=== PATIENT | female | born 1970 | race Caucasian/White ===

== ENCOUNTER 2018-11-19 06:35 | Outpatient (CLI) | payer BC ==
[2018-11-19 13:19] LABS: Hemoglobin 13.5 g/dL (12.0-16.0); Mean Corpuscular HGB CONC 33.2 g/dL (32.0-36.0); Mean Corpuscular Hemoglobin 30.2 pg (27.0-31.0); Mean Platelet Volume 7.9 fL (7.4-10.4); Platelet Count 282 thou/uL (130-400); Red Blood Cell (RBC) Count 4.46 mill/uL (4.20-5.40); White Blood Cell (WBC) Count 7.8 thou/uL (4.8-10.8)
[2018-11-19 13:40] LABS: Anion Gap 12 mmol/L (10-20); BUN (Urea Nitrogen) 15 mg/dL (7.0-18.7); Calc. Creatinine Clearance 0 mL/min (70-130); Calcium 9.7 mg/dL (7.8-10.44); Carbon Dioxide 25 mmol/L (22-29); Chloride 108 mmol/L (98-107); Estimated GFR-MDRD 70; Glucose 88 mg/dL (70-105); Potassium 3.8 mmol/L (3.5-5.1); Sodium 141 mmol/L (136-145)
[2018-11-19 14:22] LABS: PTT 27.7 SEC (22.9-36.1); Prothrombin Time 12.8 SEC (12.0-14.7)
--- NOTE | 2018-11-20 21:04 | EKG ---
Test Reason : Blood Pressure : / mmHG Vent. Rate : 072 BPM Atrial Rate : 072 BPM P-R Int : 150 ms QRS Dur : 066 ms QT Int : 392 ms P-R-T Axes : 081 086 081 degrees QTc Int : 429 ms Normal sinus rhythm Normal ECG No previous ECGs available Confirmed by Johanna TAFOYA ([id number]) on 11/20/2018 9:04:35 PM Referred By: SOLOMON Confirmed By:Johanna TAFOYA
== END 2018-11-19 06:36 | disposition home or self-care (01) ==
LOC: LABBT 06:35
PROVIDERS: ATTEND Surgery
DX: Z01.818 Encounter for other preprocedural examination (principal); M54.12 Radiculopathy, cervical region; M48.02 Spinal stenosis, cervical region
CPT/HCPCS: 80048; 85027; 85610; 85730; 93005; 93010

== ENCOUNTER 2018-11-26 06:02 | Day surgery (SDC) | payer BC ==
[2018-11-19 11:56] VITALS: BMI 23.6
[2018-11-26] MEDS ORDERED: Thrombin 5000 UNITS/5 ML VIAL ONE (06:33)
[2018-11-26] MEDS ORDERED: Sodium Chloride 0.9% 10 ML ONE (06:33)
[2018-11-26] MEDS ORDERED: Scopolamine 1.5 mg/72 hour Patch ONE (07:03)
[2018-11-26] MEDS ORDERED: Promethazine HCl 25 MG/ML VIAL ONE (07:03)
[2018-11-26] MEDS ORDERED: Famotidine/PF 20 mg/2ml Vial ONE (07:03)
[2018-11-26] MEDS ORDERED: CEFAZOLIN 2 GM/50 ML BAG ONE ×2 (07:10)
[2018-11-26] MEDS ORDERED: Fentanyl 100 MCG/2 ML VIAL ONE (07:25)
[2018-11-26] MEDS ORDERED: HYDROmorphone 2 MG/ML VIAL SLOW IVP PRN (09:37)
[2018-11-26] MEDS ORDERED: Ondansetron HCl/PF 4 MG/2 ML Vial IVP PRN (09:37)
[2018-11-26] MEDS ORDERED: Promethazine HCl 25 MG/ML VIAL SLOW IVP PRN (09:37)
[2018-11-26] MEDS ORDERED: Morphine Sulfate 2 MG/ML SYRINGE SLOW IVP PRN (09:37)
[2018-11-26] MEDS ORDERED: Promethazine HCl 25 MG/ML VIAL IM PRN ×2 (09:37→10:03)
[2018-11-26] MEDS ORDERED: PACU-Morphine 4MG/ML VIAL SLOW IVP PRN (09:37)
[2018-11-26] MEDS ORDERED: Acetaminophen 325 MG TAB PO PRN (10:03)
[2018-11-26] MEDS ORDERED: traMADol HCl 50 MG TAB PO PRN (10:03)
[2018-11-26] MEDS ORDERED: Fleet Enema 133 ML BOT PR PRN (10:03)
[2018-11-26] MEDS ORDERED: Mag-Al 1200 mg/1200 mg/30 ML UDCUP PO PRN (10:03)
[2018-11-26] MEDS ORDERED: Acetaminophen/Codeine 30-300mg Tablet PO PRN (10:03)
[2018-11-26] MEDS ORDERED: Bisacodyl 10 MG SUPP PR PRN (10:03)
[2018-11-26] MEDS ORDERED: Milk Of Magnesia 30 ML UDCUP PO PRN (10:03)
[2018-11-26] MEDS ORDERED: Gabapentin 300 MG CAP PO PRN (10:04)
[2018-11-26] MEDS ORDERED: CEFAZOLIN/Water 2 GM/20 ML SYRINGE SLOW IVP SCH (10:15)
[2018-11-26] MEDS ORDERED: HYDROmorphone 2 MG/ML VIAL ONE (11:20)
--- NOTE | 2018-11-26 13:42 | OP ---
DATE OF PROCEDURE: 11/26/2018 OPERATING ROOM: OR 11. WOUND CLASSIFICATION: Type 1 wound. OLIVING MACHINE OPERATOR: Timmy Paz PA-C. PREPROCEDURE DIAGNOSES: Cervical stenosis with neck and arm pain and cervical radiculopathy. POSTPROCEDURE DIAGNOSES: Cervical stenosis with neck and arm pain and cervical radiculopathy. PROCEDURES PERFORMED: 1. C5-C6 and C6-C7 diskectomies anteriorly for decompression of spinal cord and nerve roots. 2. Placement of interbody spacers, packed with graft, C5-C6 and C6-C7 for arthrodesis. 3. Anterior cervical plate and screw fixation C5, C6, and C7. 4. Use of operative microscope for microdissection. DESCRIPTION OF PROCEDURE: After informed consent was obtained from patient, the patient was brought to the OR. Proper patient pause and identification were carried out. Right anterior oblique wound was drawn out on the patient's anterior neck and this region was sterilely cleansed, prepared, and draped. Proper patient pause and identification were carried out. The wound was then opened with a combination of sharp, monopolar, and blunt dissection, and we proceeded lateral to the larynx, pharynx, tracheoesophageal bundle medial to the right carotid sheath. We identified the prevertebral layer of deep cervical fascia and the longus colli muscles were swept laterally. Retractors were placed. We then performed distraction at C5-C6 following localization and the microscope was used for microdissection. The diskectomy was performed with excellent decompression of the common dural tube and bilateral C6 nerve roots. We then placed an interbody spacer following preparation of the endplate at C5-C6, packed with graft for arthrodesis. We then turned our attention to release of the distraction at C6-C7 and diskectomy was performed at C6-C7. Again with decompression of spinal cord and nerve roots, the endplates were prepared and interbody spacer in appropriate dimension packed with graft was placed at C6-C7 for arthrodesis. After the Interbody spacer was placed for arthrodesis, wound was copiously irrigated. Hemostasis was maximized throughout. Microscope was removed. Anterior cervical plate and screw fixation occurred with final tightening and copiously irrigated the wound and closed in anatomical layers. The patient then emerged from anesthesia. Job ID: [id number]
[2018-11-26] MEDS ORDERED: Metoclopramide HCl 10 MG/2 ML VIAL ONE (15:34)
[2018-11-26] MEDS ORDERED: Glycopyrrolate 0.2 MG/ML 5 ML SYRINGE ONE (15:34)
[2018-11-26] MEDS ORDERED: Rocuronium Bromide 10 MG/ML (10ML VIAL) ONE (15:34)
[2018-11-26] MEDS ORDERED: ePHEDrine/0.9% NaCl/PF SYRINGE 50 mg/10 ml ONE (15:34)
[2018-11-26] MEDS ORDERED: Lidocaine 1% PF 5 ML VIAL ONE (15:34)
[2018-11-26] MEDS ORDERED: Dexamethasone 20 MG/5 ML VIAL ONE (15:34)
[2018-11-26] MEDS ORDERED: PROPOFOL 200 MG/20 ML VIAL ONE (15:34)
[2018-11-26] MEDS ORDERED: PHENYLEPHRINE-NS 100 MCG/ML 10 ML SYRINGE ONE (15:34)
[2018-11-26] MEDS: Morphine 2 MG/ML SYRINGE SLOW IVP PRN ×2 (15:49→17:39)
[2018-11-26] MEDS: Sodium Chloride 0.9% 1,000 ML IV SCH (15:53)
[2018-11-26] MEDS: CEFAZOLIN 2 GM/50 ML-DEXTROSE 2 GM in Premix Bag 1 BAG IVPB SCH (16:15)
[2018-11-26] MEDS: tiZANidine HCl 4 MG TAB PO PRN (17:41)
[2018-11-26] MEDS: metFORMIN XR 500 MG TAB PO SCH (17:43)
[2018-11-26] MEDS ORDERED: Montelukast Sodium 10 mg Tablet PO SCH (21:00)
[2018-11-26] MEDS: Topiramate 25 MG TAB PO SCH (21:27)
[2018-11-27] MEDS: HYDROcodone/Acetaminophen 7.5/325 mg Tablet PO PRN ×3 (00:14→09:46)
[2018-11-27] MEDS: tiZANidine HCl 4 MG TAB PO PRN (00:14)
[2018-11-27] MEDS: CEFAZOLIN 2 GM/50 ML-DEXTROSE 2 GM in Premix Bag 1 BAG IVPB SCH ×2 (00:19→06:34)
[2018-11-27] MEDS: Sodium Chloride 0.9% 1,000 ML IV SCH (06:17)
[2018-11-27 08:28] VITALS: BP 113/69; TEMP 97.9
[2018-11-27] MEDS ORDERED: Loratadine 10 MG TAB PO SCH (09:00)
[2018-11-27] MEDS ORDERED: Venlafaxine HCl XR 75 MG CAP PO SCH ×2 (09:00→10:30)
[2018-11-27] MEDS: metFORMIN XR 500 MG TAB PO SCH (10:18)
[2018-11-27] MEDS: Topiramate 25 MG TAB PO SCH (10:26)
[2018-11-27] MEDS ORDERED: Topiramate 25 MG TAB PO SCH (10:30)
--- NOTE | 2018-11-27 12:29 | PRG ---
DATE OF SERVICE: 11/27/2018 SUBJECTIVE: Ms. Mann is postoperative day 1 from C5 through C7 ACDF. She is doing very well with improvement in her arm pain. She has as expected neck pain related to surgery, but is doing well. We will remove her FRANKI drain. We went over do's and don'ts in the postoperative period. Her exam is intact. Job ID: [id number]
== END 2018-11-27 12:01 | disposition home or self-care (01) ==
LOC: SDC 06:02 → 3SE 13:05 → SDC 11-27 12:01
PROVIDERS: ATTEND Surgery
PROC: 0RG20K0 Fusion of 2 or more Cervical Vertebral Joints with Nonautologous Tissue Substitute, Anterior Approach, Anterior Column, Open Approach (ICD-10-PCS; principal; 2018-11-26)
PROC: 0RG20A0 Fusion of 2 or more Cervical Vertebral Joints with Interbody Fusion Device, Anterior Approach, Anterior Column, Open Approach (ICD-10-PCS; principal; 2018-11-26)
DX: M48.02 Spinal stenosis, cervical region (principal); M54.12 Radiculopathy, cervical region; Z91.041 Radiographic dye allergy status; Z88.2 Allergy status to sulfonamides; Z79.82 Long term (current) use of aspirin; Z79.84 Long term (current) use of oral hypoglycemic drugs; Z79.899 Other long term (current) drug therapy
CPT/HCPCS: 76000; C1713; C1776; J1100; J1170; J2001; J2270; J2550; J2704; J2765; J3010; J3490; S0028

== ENCOUNTER 2023-06-30 15:02 | Outpatient (CLI) | payer BC | END 2023-06-30 15:03 | disposition home or self-care (01) | LOC: RAD 15:02 | PROVIDERS: ATTEND Physician Assistant Medical | DX: R19.5 Other fecal abnormalities (principal); K59.09 Other constipation; B46.9 Zygomycosis, unspecified; Z86.010 Personal history of colon polyps | CPT/HCPCS: 74018 ==